=== PATIENT | female | born 1950 | race Caucasian/White ===

== ENCOUNTER 2016-08-02 09:19 | Outpatient (RCR) | payer MEDICARE, OTHER ==
[2015-02-03 10:00] VITALS: BP 118/71
[~2016-08-02 09:19] MED LIST: ASPIR LOW81 MG PO; CALCIUM + D 5001 TAB PO; HCTZ 25MG25 MG PO; LOPRESSOR 225 MG/TAB PO; PAXIL40 MG PO; PEPCID 20MG TAB20 MG PO; TRAZODONE50 MG PO
== END 2016-08-30 13:20 ==
LOC: OPPGERO 09:19
DX: F33.1 Major depressive disorder, recurrent, moderate (principal); F41.1 Generalized anxiety disorder

== ENCOUNTER 2016-08-31 09:00 | Outpatient (RCR) | payer MEDICARE, OTHER ==
[2015-02-03 10:00] VITALS: BP 118/71
== END 2016-09-27 10:25 ==
LOC: OPPGERO 09:00
DX: F33.1 Major depressive disorder, recurrent, moderate (principal); F41.1 Generalized anxiety disorder

== ENCOUNTER → 2016-09-02 | Outpatient (CLI) | payer MEDICARE, OTHER | LOC: LAB 08:26 | DX: J44.9 Chronic obstructive pulmonary disease, unspecified (principal) ==

== ENCOUNTER → 2016-09-26 | Outpatient (CLI) | payer MEDICARE, OTHER | LOC: LAB 13:53 | DX: A31.0 Pulmonary mycobacterial infection (principal) ==

== ENCOUNTER 2016-09-28 07:40 | Outpatient (RCR) | payer MEDICARE, OTHER ==
[2015-02-03 10:00] VITALS: BP 118/71
== END 2016-10-28 15:05 ==
LOC: OPPGERO 07:40
DX: F33.1 Major depressive disorder, recurrent, moderate (principal); F41.1 Generalized anxiety disorder

== ENCOUNTER 2016-10-29 09:00 | Outpatient (RCR) | payer MEDICARE, OTHER ==
[2015-02-03 10:00] VITALS: BP 118/71
== END 2016-11-25 15:30 ==
LOC: OPPGERO 09:00
DX: F33.1 Major depressive disorder, recurrent, moderate (principal); F41.1 Generalized anxiety disorder

== ENCOUNTER → 2016-11-07 | Outpatient (CLI) | payer MEDICARE, OTHER ==
[2015-02-03 10:00] VITALS: BP 118/71
== END ==
LOC: LAB 08:31
DX: A31.0 Pulmonary mycobacterial infection (principal)

== ENCOUNTER 2016-11-28 08:24 | Outpatient (RCR) | payer MEDICARE, OTHER ==
[2015-02-03 10:00] VITALS: BP 118/71
== END 2016-12-28 16:54 ==
LOC: OPPGERO 08:24
DX: F33.1 Major depressive disorder, recurrent, moderate (principal); F41.1 Generalized anxiety disorder

== ENCOUNTER → 2017-03-03 | Outpatient (CLI) | payer MEDICARE, OTHER ==
[2015-02-03 10:00] VITALS: BP 118/71
== END ==
LOC: RAD 09:36
DX: A31.0 Pulmonary mycobacterial infection (principal); K76.0 Fatty (change of) liver, not elsewhere classified; D71 Functional disorders of polymorphonuclear neutrophils
CPT/HCPCS: Q9967

== ENCOUNTER → 2017-05-04 | Outpatient (CLI) | payer MEDICARE, OTHER ==
[2015-02-03 10:00] VITALS: BP 118/71
== END ==
LOC: LAB 09:20
DX: Z00.00 Encounter for general adult medical examination without abnormal findings (principal); N39.46 Mixed incontinence; E78.2 Mixed hyperlipidemia; M54.5 Low back pain

== ENCOUNTER → 2017-06-13 | Day surgery (SDC) | payer MEDICARE, OTHER ==
[2015-02-03 10:00] VITALS: BP 118/71
== END ==
LOC: MSO 07:09
DX: Z12.11 Encounter for screening for malignant neoplasm of colon (principal); K57.30 Diverticulosis of large intestine without perforation or abscess without bleeding; I10 Essential (primary) hypertension; J44.9 Chronic obstructive pulmonary disease, unspecified; G47.33 Obstructive sleep apnea (adult) (pediatric); F41.9 Anxiety disorder, unspecified; F32.9 Major depressive disorder, single episode, unspecified
CPT/HCPCS: G0121; 00810; J3010; J7120

== ENCOUNTER → 2017-06-16 | Outpatient (CLI) | payer MEDICARE, OTHER ==
[2015-02-03 10:00] VITALS: BP 118/71
== END ==
LOC: RAD 08:19
DX: Z12.11 Encounter for screening for malignant neoplasm of colon (principal)
CPT/HCPCS: Q9967

== ENCOUNTER → 2017-07-27 | Outpatient (CLI) | payer MEDICARE, OTHER ==
[2015-02-03 10:00] VITALS: BP 118/71
== END ==
LOC: MAMMO 09:00 → RAD 09:15
DX: Z12.31 Encounter for screening mammogram for malignant neoplasm of breast (principal)
CPT/HCPCS: G0202

== ENCOUNTER → 2017-11-15 | Outpatient (CLI) | payer MEDICARE, OTHER ==
[2015-02-03 10:00] VITALS: BP 118/71
== END ==
LOC: RAD 15:58
DX: J44.9 Chronic obstructive pulmonary disease, unspecified (principal)

== ENCOUNTER → 2018-08-01 | Outpatient (CLI) | payer MEDICARE, OTHER ==
[2015-02-03 10:00] VITALS: BP 118/71
== END ==
LOC: MAMMO 09:15
DX: Z12.31 Encounter for screening mammogram for malignant neoplasm of breast (principal); Z98.890 Other specified postprocedural states

== ENCOUNTER → 2018-10-02 | Outpatient (CLI) | payer MEDICARE, OTHER ==
[2015-02-03 10:00] VITALS: BP 118/71
[2018-10-02 15:42] LABS: EOS # 0.1 (0.04-0.40); EOS % 1.7 % (1.0-5.0); HEMATOCRIT 43.6 % (37.0-47.0); HEMOGLOBIN 14.2 g/dL (12.5-16.0); LYMPH# 1.6 (1.50-4.00); MEAN CELL VOLUME 87 fl (78-100); MEAN CORPUSCULAR HEMOGLOBIN 28 pg (27-31); MEAN CORPUSCULAR HGB CONC 33 g/dL (33-37); MEAN PLATELET VOLUME 9.5 fl (7.4-10.4); MONO # 0.5 (0.20-0.80); NEU # 3.5 (1.40-6.50); PLATELET COUNT 251 K/mm3 (130-400); RED BLOOD COUNT 5.03 M/mm3 (4.10-5.30); RED CELL DISTRIBUTION WIDTH 13.4 % (11.5-14.5); WHITE BLOOD COUNT 5.9 K/mm3 (4.8-10.8)
[2018-10-02 16:09] LABS: ALBUMIN 4.5 g/dL (3.5-5.0); POTASSIUM 3.5 mmol/L (3.6-5.0); TOTAL BILIRUBIN 0.3 mg/dL (0.2-1.3); TOTAL PROTEIN 7.4 g/dL (6.3-8.2)
== END ==
LOC: LAB 15:20
PROVIDERS: Family Medicine
DX: R91.8 Other nonspecific abnormal finding of lung field (principal); J98.4 Other disorders of lung; I10 Essential (primary) hypertension; M81.0 Age-related osteoporosis without current pathological fracture; I25.10 Atherosclerotic heart disease of native coronary artery without angina pectoris; I77.810 Thoracic aortic ectasia; R59.0 Localized enlarged lymph nodes; R53.83 Other fatigue
CPT/HCPCS: Q9967

== ENCOUNTER → 2018-10-09 | Outpatient (CLI) | payer MEDICARE, OTHER ==
[2015-02-03 10:00] VITALS: BP 118/71
== END ==
LOC: MAMMO 14:30 → RAD 14:30
DX: Z13.820 Encounter for screening for osteoporosis (principal); M81.0 Age-related osteoporosis without current pathological fracture

== ENCOUNTER → 2019-08-13 | Outpatient (CLI) | payer MEDICARE, OTHER ==
[2015-02-03 10:00] VITALS: BP 118/71
== END ==
LOC: MAMMO 12:51
DX: Z12.31 Encounter for screening mammogram for malignant neoplasm of breast (principal)

== ENCOUNTER 2019-09-26 10:13 | Emergency (ER) | payer MEDICARE, OTHER ==
[~2019-09-26 10:13] MED LIST changes: +DESYREL50 MG PO; -TRAZODONE50 MG PO
[2019-09-26] MEDS ORDERED: ANORO ELLIPTA1 POW IH (10:29)
[2019-09-26] MEDS ORDERED: LAMOTRIGINE25 M1 PO (10:30)
[2019-09-26] MEDS ORDERED: TOLTERODINE TART4 MG PO (10:30)
[2019-09-26 10:50] LABS: HEMATOCRIT 40.4 % (37.0-47.0); HEMOGLOBIN 13.1 g/dL (12.5-16.0); MEAN CELL VOLUME 85 fl (78-100); MEAN CORPUSCULAR HEMOGLOBIN 28 pg (27-31); MEAN CORPUSCULAR HGB CONC 32 g/dL (33-37); MEAN PLATELET VOLUME 9.9 fl (7.4-10.4); PLATELET COUNT 202 K/mm3 (130-400); RED BLOOD COUNT 4.73 M/mm3 (4.10-5.30); RED CELL DISTRIBUTION WIDTH 13.7 % (11.5-14.5); WHITE BLOOD COUNT 19.4 K/mm3 (4.8-10.8)
[2019-09-26 11:10] LABS: POTASSIUM 3.1 mmol/L (3.5-5.1); SODIUM 137 mmol/L (136-145)
[2019-09-26 11:11] LABS: CALCIUM 9.8 mg/dL (8.3-10.5)
[2019-09-26 11:13] LABS: GLUCOSE 127 mg/dL (65-105); PARTIAL THROMBOPLASTIN TIME 24.8 SECONDS (21.0-32.0); PROTHROMBIN TIME 11.4 SECONDS (9.0-12.0); TOTAL PROTEIN 6.7 g/dL (6.2-8.1)
[2019-09-26 11:14] LABS: BAND 12 % (0-10); CARBON DIOXIDE 27 mmol/L (23-31); LYMPHOCYTE 4 % (20-51); METAMYELOCYTE 1 % (0-0); MONOCYTE 4 % (3-10); NEUTROPHILS 79 % (42-75)
[2019-09-26 11:18] LABS: AST-SGOT 15 U/L (5-34)
[2019-09-26 11:19] LABS: ALCOHOL IN-HOUSE < 10 mg/dL (<10); ALT/SGPT 23 U/L (0-55)
[2019-09-26 11:31] LABS: TROPONIN-I < 0.03 ng/mL (<0.030)
[2019-09-26 12:32] VITALS: BP 128/87
[2019-09-26] MEDS ORDERED: PAROXETINE HYDR40 MG PO (12:38)
[2019-09-26] MEDS ORDERED: NAMENDA10 MG PO (12:41)
[2019-09-26] MEDS ORDERED: ASPIRIN E.C. 8181 MG (12:42)
[2019-09-26 13:53] LABS: URINE APPEARANCE CLOUDY; URINE BILIRUBIN NEGATIVE (NEGATIVE); URINE BLOOD 50 ery/uL (NEGATIVE); URINE COLOR YELLOW; URINE GLUCOSE NEGATIVE (NEGATIVE); URINE KETONE 2+ (NEGATIVE); URINE LEUKOCYTE ESTERASE 1+ (NEGATIVE); URINE MUCUS PRESENT (NOT PRESENT); URINE NITRATE NEGATIVE (NEGATIVE); URINE PROTEIN(semi-quant) 1+ mg/dL (NEGATIVE); URINE UROBILINOGEN NORMAL (NORMAL); URINE WBC 31-50 /hpf (0-3)
[2019-09-28] MEDS ORDERED: ZITHROMAX 250M250 MG PO (12:18)
[2019-09-28] MEDS ORDERED: CEFUROXIME AXE500 MG PO (12:20)
== END 2019-09-26 12:20 | disposition other institution (70) ==
LOC: ED 10:13
PROVIDERS: Nurse Practitioner
DX: J18.9 Pneumonia, unspecified organism (principal); R09.02 Hypoxemia; R42 Dizziness and giddiness; R51 Headache; I10 Essential (primary) hypertension; K21.9 Gastro-esophageal reflux disease without esophagitis; Z87.891 Personal history of nicotine dependence
CPT/HCPCS: J7030

== ENCOUNTER → 2020-07-20 | Outpatient (CLI) | payer MEDICARE, OTHER ==
[2019-09-28 09:29] VITALS: BP 123/72
[~2020-07-20] MED LIST changes: +ANORO ELLIPTA1 POW IH; +ASPIRIN E.C. 8181 MG; +CEFUROXIME AXE500 MG PO; +LAMOTRIGINE25 M1 PO; +NAMENDA10 MG PO; +PAROXETINE HYDR40 MG PO; +TOLTERODINE TART4 MG PO; +ZITHROMAX 250M250 MG PO
[2020-07-20 15:13] LABS: ALBUMIN 4.1 g/dL (3.4-4.8); POTASSIUM 3.8 mmol/L (3.5-5.1)
[2020-07-20 15:14] LABS: CALCIUM 9.6 mg/dL (8.3-10.5)
[2020-07-20 15:15] LABS: TOTAL PROTEIN 6.7 g/dL (6.2-8.1)
[2020-07-20 15:17] LABS: TOTAL BILIRUBIN 0.3 mg/dL (0.2-1.2)
[2020-07-20 16:21] LABS: EOS # 0.1 (0.04-0.40); EOS % 1.5 % (1.0-5.0); HEMATOCRIT 41.6 % (37.0-47.0); HEMOGLOBIN 13.5 g/dL (12.5-16.0); LYMPH# 1.5 (1.50-4.00); MEAN CELL VOLUME 86 fl (78-100); MEAN CORPUSCULAR HEMOGLOBIN 28 pg (27-31); MEAN CORPUSCULAR HGB CONC 33 g/dL (33-37); MEAN PLATELET VOLUME 10.6 fl (7.4-10.4); MONO # 0.5 (0.20-0.80); NEU # 3.3 (1.40-6.50); PLATELET COUNT 246 K/mm3 (130-400); RED BLOOD COUNT 4.82 M/mm3 (4.10-5.30); WHITE BLOOD COUNT 5.3 K/mm3 (4.8-10.8)
[2020-07-20 16:25] LABS: ERYTHROCYTE SEDIMENTATION RATE 3 mm/hr (0-30)
== END ==
LOC: LAB 14:38
PROVIDERS: Family Medicine
DX: Z00.00 Encounter for general adult medical examination without abnormal findings (principal); R53.83 Other fatigue

== ENCOUNTER → 2020-08-17 | Outpatient (CLI) | payer MEDICARE, OTHER ==
[2019-09-28 09:29] VITALS: BP 123/72
[2020-08-17 09:34] LABS: MAGNESIUM 1.91 mg/dL (1.60-2.60)
[2020-08-18 02:36] LABS: FOLATE (FOLIC ACID) 19.2 ng/mL (7.0-31.4)
== END ==
LOC: LAB 08-16 11:03
PROVIDERS: Psychiatry & Neurology Neurology
DX: E61.1 Iron deficiency (principal); E78.5 Hyperlipidemia, unspecified; E53.9 Vitamin B deficiency, unspecified; G25.81 Restless legs syndrome; Z79.899 Other long term (current) drug therapy; E53.8 Deficiency of other specified B group vitamins

== ENCOUNTER → 2020-08-18 | Outpatient (CLI) | payer MEDICARE, OTHER ==
[2019-09-28 09:29] VITALS: BP 123/72
== END | disposition still patient (30) ==
LOC: MAMMO 07:54
DX: Z12.31 Encounter for screening mammogram for malignant neoplasm of breast (principal); Z85.3 Personal history of malignant neoplasm of breast; Z98.890 Other specified postprocedural states; Z92.3 Personal history of irradiation

== ENCOUNTER → 2020-08-18 | Outpatient (CLI) | payer MEDICARE, OTHER ==
[2019-09-28 09:29] VITALS: BP 123/72
== END ==
LOC: RAD 08:00
DX: M48.061 Spinal stenosis, lumbar region without neurogenic claudication (principal); M47.816 Spondylosis without myelopathy or radiculopathy, lumbar region; M47.817 Spondylosis without myelopathy or radiculopathy, lumbosacral region; M71.38 Other bursal cyst, other site; M79.669 Pain in unspecified lower leg
CPT/HCPCS: A9585

== ENCOUNTER 2020-08-27 10:09 | Outpatient (RCR) | payer MEDICARE, OTHER ==
[2019-09-28 09:29] VITALS: BP 123/72
== END 2020-11-25 | disposition home or self-care (01) ==
LOC: PT
DX: M51.37 Other intervertebral disc degeneration, lumbosacral region (principal); M48.061 Spinal stenosis, lumbar region without neurogenic claudication

== ENCOUNTER → 2021-02-10 | Outpatient (CLI) | payer MEDICARE, OTHER | LOC: LAB 18:11 | DX: A31.0 Pulmonary mycobacterial infection (principal); Z20.822 Contact with and (suspected) exposure to COVID-19 ==